=== PATIENT | female | born 1945 | race Caucasian/White ===

== ENCOUNTER → 2016-10-27 | Outpatient (CLI) | payer OTHER | LOC: ECHO 10-26 11:00 | DX: R01.1 Cardiac murmur, unspecified (principal); I51.7 Cardiomegaly; I07.1 Rheumatic tricuspid insufficiency; I27.2 Other secondary pulmonary hypertension ==

== ENCOUNTER → 2016-11-30 | Outpatient (CLI) | payer OTHER | LOC: US 09:50 | DX: D69.6 Thrombocytopenia, unspecified (principal); R16.0 Hepatomegaly, not elsewhere classified | CPT/HCPCS: 76705 ==

== ENCOUNTER 2020-11-03 18:04 | Emergency (ER) | payer MEDICARE ==
[~2020-11-03 18:04] MED LIST: ALDACTONE25 MG PO; COZAAR100 MG PO; TOPROL XL25 MG PO
[2020-11-03 21:59] LABS: HEMOGLOBIN 13.4 gm/dl (12.3-15.3); RED BLOOD COUNT 3.93 M/UL (4.00-5.10); WHITE BLOOD COUNT 4.3 K/UL (4.5-11.0)
[2020-11-03 22:23] LABS: BUN/CREATININE RATIO 33 (0-10)
[2020-11-03] MEDS ORDERED: HYDROCODON-ACE1 EAC4 PO (23:24)
== END 2020-11-03 23:34 | disposition home or self-care (01) ==
LOC: ER1 18:04
PROVIDERS: Family Medicine
DX: S22.32XA Fracture of one rib, left side, initial encounter for closed fracture (principal); D69.6 Thrombocytopenia, unspecified; K74.60 Unspecified cirrhosis of liver; Z90.89 Acquired absence of other organs; Z88.6 Allergy status to analgesic agent; Z79.899 Other long term (current) drug therapy; W18.2XXA Fall in (into) shower or empty bathtub, initial encounter
CPT/HCPCS: 71250; 80053; 82550; 82553; 83690; 83874; 84484; 85025; 85610; 99285